=== PATIENT | male | born 1990 | race Hispanic/Latino ===

== ENCOUNTER 2017-02-26 11:44 | Emergency (ER) | payer OTHER ==
[~2017-02-26] VITALS: Ht 177.8 cm; Wt 102.1 kg
[2017-02-26] MEDS ORDERED: CLAR10CA3 PO (12:01)
[2017-02-26] MEDS ORDERED: NAPROXEN 250 MG TAB PO ONE (14:00)
[2017-02-26] MEDS ORDERED: CLINDAMYCIN 150 MG CAP PO ONE (14:00)
[2017-02-26] MEDS ORDERED: IBUP80TA PO (14:58)
[2017-02-26] MEDS ORDERED: CLIN1CAP5 PO (14:58)
[2017-02-26 15:16] VITALS: BP 140/72
--- NOTE | 2017-02-27 07:35 | REP ---
RIGHT FIRST TOE SERIES: 02/26/2017. CLINICAL HISTORY: Trauma. In-grown toenail. FINDINGS: There are no prior studies. There is soft tissue swelling about the PIP joint and distal phalanx of the great toe more laterally than medially. I see no subcutaneous air. There is no fracture, avulsion, erosion or foreign body. No significant degenerative change. IMPRESSION: 1. Some soft tissue swelling about the distal phalanx of the great toe. No fracture or foreign body. Signed by Josh Barry MD 02/27/2017 07:46 A
== END 2017-02-26 15:17 | disposition home or self-care (01) ==
LOC: M ED 12:51
DX: L03.031 Cellulitis of right toe (principal); S90.931A Unspecified superficial injury of right great toe, initial encounter; X58.XXXA Exposure to other specified factors, initial encounter; Y92.89 Other specified places as the place of occurrence of the external cause; Y93.89 Activity, other specified; Y99.8 Other external cause status; Z79.899 Other long term (current) drug therapy

== ENCOUNTER → 2017-04-28 | Outpatient (CLI) | payer OTHER ==
[~2017-04-28] MED LIST: CLAR10CA3 PO; CLIN1CAP5 PO; IBUP80TA PO
[2017-04-28 12:58] LABS: MEAN CORPUSCULAR HEMOGLOBIN 31.3 pg (27.0-33.0); MEAN CORPUSCULAR HGB CONC 34.7 g/dl (32.0-36.5); MEAN CORPUSCULAR VOLUME 90.3 fl (80.0-96.0); RED CELL DISTRIBUTION WIDTH 12.3 % (11.5-14.5); WHITE BLOOD COUNT 6.7 K/mm3 (4.0-10.0)
[2017-04-28 13:39] LABS: ALKALINE PHOSPHATASE 69 U/L (45-117); ALT/SGPT 76 U/L (12-78); ANION GAP 7 MEQ/L (8-16); AST/SGOT 34 U/L (15-37); BILIRUBIN,TOTAL 0.3 MG/DL (0.2-1.0); BLOOD UREA NITROGEN 14 MG/DL (7-18); CALCIUM LEVEL 8.9 MG/DL (8.5-10.1); CARBON DIOXIDE LEVEL 29 MEQ/L (21-32); CHLORIDE LEVEL 103 MEQ/L (98-107); CREATININE FOR GFR 1.01 MG/DL (0.70-1.30); GLOMERULAR FILTRATION RATE > 60.0 (>60); GLUCOSE, FASTING 84 MG/DL (70-105); POTASSIUM SERUM 4.4 MEQ/L (3.5-5.1); SODIUM LEVEL 139 MEQ/L (136-145)
[2017-04-28 13:40] LABS: ALBUMIN 4.1 GM/DL (3.2-5.2); ALBUMIN/GLOBULIN RATIO 1.17 (1.00-1.93); THYROXINE (T4) 6.9 UG/DL (4.5-12.0); TOTAL PROTEIN 7.6 GM/DL (6.4-8.2)
[2017-04-29 08:44] LABS: CONTROL LINE HPYORI INT CTR LINE PRESENT
== END ==
LOC: M SMT 10:20
PROVIDERS: ATTEND Allergy & Immunology Allergy
DX: L50.1 Idiopathic urticaria (principal); Z91.013 Allergy to seafood